=== PATIENT | male | born 1950 | race Caucasian/White ===

== ENCOUNTER → 2016-09-11 | Outpatient (CLI) | payer MEDICARE ==
--- NOTE | 2016-09-11 15:23 | KCIC ---
PROCEDURE Left hip radiographs. HISTORY Chronic left hip pain COMPARISON None FINDINGS Two views of the left hip are submitted. There is advanced narrowing of the left hip joint space, adjacent osteophyte formation of the acetabulum. There is mild relative flattening of the left femoral head with associated mixed lucency and sclerosis. No acute fracture is identified. IMPRESSION There is advanced osteoarthritic change of the left hip. There is also some relative flattening of the left femoral head with associated mixed lucency and sclerosis, component of avascular necrosis possible. Electronically signed by: Travis Dalton MD (September 11, 2016 15:21:42)
--- NOTE | 2016-09-11 15:24 | KCIC ---
PROCEDURE Right hip radiographs. HISTORY Chronic right hip pain COMPARISON None FINDINGS Two views of the right hip are submitted. There is mild osteophyte formation of the acetabulum, right hip joint space relatively maintained. Calcifications of the visualized pelvis are likely due to phleboliths. No acute fracture or dislocation is identified. Right femoral head morphology is maintained. IMPRESSION There is mild osteoarthritic change of the right hip. Electronically signed by: Travis Dalton MD (September 11, 2016 15:22:39)
--- NOTE | 2016-09-11 15:36 | KCIC ---
PROCEDURE Bilateral knee radiographs. HISTORY Chronic bilateral knee pain and degenerative arthritis COMPARISON None FINDINGS Three views of the bilateral knees for total of 6 views are submitted. Left knee: There is severe narrowing of the medial compartment joint space with associated osteophyte formation. There is no joint effusion or evidence of acute fracture. Right knee: There is mild narrowing of the medial compartment joint space. There is superior patellar enthesophyte. There is no joint effusion or or evidence of acute fracture. IMPRESSION 1. There is osteoarthritic change of the medial compartments of both knees much greater on the left. Electronically signed by: Travis Dalton MD (September 11, 2016 15:35:15)
== END | disposition home or self-care (01) ==
LOC: KCIC 14:23
PROVIDERS: ATTEND Family Medicine
DX: M25.552 Pain in left hip (principal); G89.29 Other chronic pain; M25.562 Pain in left knee; M25.561 Pain in right knee
CPT/HCPCS: 73502; 73562

== ENCOUNTER → 2017-04-14 | Outpatient (CLI) | payer MEDICARE ==
--- NOTE | 2017-04-14 13:37 | CARD ---
APPROVED REPORT EXAM: Two-dimensional and M-mode echocardiogram with Doppler and color Doppler. Other Information Quality : Average INDICATION Preop 2D DIMENSIONS Left Atrium(2D)4.5 (1.6-4.0cm)IVSd1.3 (0.7-1.1cm) Aortic Root(2D)3.5 (2.0-3.7cm)LVDd4.2 (3.9-5.9cm) LVOT Diameter2.0 (1.8-2.4cm)PWd1.2 (0.7-1.1cm) LVDs3.0 (2.5-4.0cm)FS (%) 28.9 % SV44.7 mlLVEF(%)55.9 (>50%) Aortic Valve AoV Peak Angel.139.6cm/sAoV VTI27.2cm AO Peak GR.7.8mmHgLVOT Peak Angel.120.0cm/s AO Mean GR.4mmHgAVA (VMAX)2.63cm2 GUERLINE (VTI)2.70cm2 Mitral Valve MV E Spykxrlg98.1cm/sMV DECEL [id number] MV A Ejzwwzyd24.2cm/sE/A Ratio0.7 Tricuspid Valve TR P. [id number]/sRAP [id number] TR Peak Gr.[id number] LEFT VENTRICLE The left ventricle is normal size. There is mild concentric left ventricular hypertrophy. Left ventri dwayne systolic function is normal. The Ejection Fraction is 55-60%. There is normal LV segmental wall m otion. Transmitral Doppler flow pattern is Grade I-abnormal relaxation pattern. RIGHT VENTRICLE The right ventricle is normal size. The right ventricular systolic function is normal. ATRIA The left atrium is mildly dilated. The right atrium size is normal. The interatrial septum is intact with no evidence for an atrial septal defect or patent foramen ovale as noted on 2-D or Doppler imagi ng. AORTIC VALVE The aortic valve is mildly calcified. Doppler and Color Flow revealed no significant aortic regurgita tion. There is no significant aortic valvular stenosis. MITRAL VALVE The mitral valve leaflets are mildly calcified. There is no evidence of mitral valve prolapse. There is no mitral valve stenosis. Doppler and Color-flow revealed trace mitral regurgitation. TRICUSPID VALVE The tricuspid valve is normal in structure and function. Doppler and Color Flow revealed trace tricus pid regurgitation. There is no pulmonary hypertension. The PA pressure was estimated at 9 mmHg. There is no tricuspid valve prolapse or vegetation. There is no tricuspid valve stenosis. PULMONIC VALVE Doppler and Color Flow revealed no pulmonic valvular regurgitation. There is no pulmonic valvular ling nosis. GREAT VESSELS The aortic root is normal in size. The ascending aorta is normal in size. The IVC is normal in size a nd collapses >50% with inspiration. PERICARDIAL EFFUSION There is no pleural effusion. There is no evidence of significant pericardial effusion. Critical Notification Critical Value: No <Conclusion> Left ventricle systolic function is normal. The Ejection Fraction is 55-60%. There is normal LV segmental wall motion.
== END | disposition home or self-care (01) ==
LOC: ECHO 09:02
PROVIDERS: ATTEND Internal Medicine Cardiovascular Disease
DX: Z01.818 Encounter for other preprocedural examination (principal); I51.7 Cardiomegaly; R94.31 Abnormal electrocardiogram [ECG] [EKG]
CPT/HCPCS: 93306

== ENCOUNTER → 2017-09-14 | Outpatient (CLI) | payer MEDICARE | END | disposition home or self-care (01) | LOC: PMGWOUND 10:26 | DX: T24.301A Burn of third degree of unspecified site of right lower limb, except ankle and foot, initial encounter (principal); T31.0 Burns involving less than 10% of body surface; S81.831A Puncture wound without foreign body, right lower leg, initial encounter; M19.90 Unspecified osteoarthritis, unspecified site; I10 Essential (primary) hypertension; X08.8XXA Exposure to other specified smoke, fire and flames, initial encounter; Y93.9 Activity, unspecified; Y99.8 Other external cause status; Y92.9 Unspecified place or not applicable | CPT/HCPCS: 11042; 11045; 97597; 97598 ==

== ENCOUNTER → 2017-09-21 | Outpatient (CLI) | payer MEDICARE | END | disposition home or self-care (01) | LOC: PMGWOUND 11:03 | DX: T24.301D Burn of third degree of unspecified site of right lower limb, except ankle and foot, subsequent encounter (principal); S81.831D Puncture wound without foreign body, right lower leg, subsequent encounter; T31.0 Burns involving less than 10% of body surface; M19.90 Unspecified osteoarthritis, unspecified site; I10 Essential (primary) hypertension; Z96.649 Presence of unspecified artificial hip joint; X08.8XXD Exposure to other specified smoke, fire and flames, subsequent encounter; X58.XXXD Exposure to other specified factors, subsequent encounter | CPT/HCPCS: 11042; 97597 ==

== ENCOUNTER → 2017-10-05 | Outpatient (CLI) | payer MEDICARE | END | disposition home or self-care (01) | LOC: PMGWNDHBO 11:00 | DX: T24.301D Burn of third degree of unspecified site of right lower limb, except ankle and foot, subsequent encounter (principal); T31.0 Burns involving less than 10% of body surface; S81.831D Puncture wound without foreign body, right lower leg, subsequent encounter; M19.90 Unspecified osteoarthritis, unspecified site; I10 Essential (primary) hypertension; Z96.649 Presence of unspecified artificial hip joint; X08.8XXD Exposure to other specified smoke, fire and flames, subsequent encounter | CPT/HCPCS: 97597 ==